=== PATIENT | female | born 1980 | race Two or more races ===

== ENCOUNTER 2024-05-21 10:19 | Emergency (ER) | payer OTHER, SELFPAY ==
[2024-05-21 10:47] VITALS: BP 143/80; PULSE 60; RESP 16; TEMP 37; O2SAT 98; BMI 30.7
--- NOTE | 2024-05-21 11:19 | XR_ITS ---
Examination: Foot, right, 3 views Technique: AP, oblique, lateral views foot, 3 views Date and time of exam: May 21, 2024 1143 hrs. Indications: Puncture injury to the foot one week ago, foot pain Findings: No acute fracture No cortical bone destruction No opaque foreign body Mild narrowing first metatarsophalangeal joint Impression: No suzy cortical bone destruction No opaque foreign body
--- NOTE | 2024-05-21 14:17 | PD.EDANKLE ---
Lower Extremity Injury RME/HPI General Chief Complaint: Ankle/Foot Injury Stated Complaint: INJURED RIGHT FOOT WHILE AT WORK Time Seen by Provider: 05/21/24 10:47 Arrival date/time: 05/21/24 10:19 This is a 44-year-old female who presents to the emergency department with complaints of a possible thorn to her plantar aspect of his right foot. 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 She reports that this incident happened approximately 1 week ago however still having pain with ambulation despite there is no visible open wound, or thorn. Denies any other injury. Mode of arrival: ambulatory Related Data Previous Rx's ?Medication ?Instructions ?Recorded ibuprofen 800 mg tablet (IBU) 800 mg PO Q8H #20 tabs 05/21/24 Allergies Allergy/AdvReac Type Severity Reaction Status Date / Time No Known Allergies Allergy Verified 05/21/24 10:21 Review of Systems Review of Systems Systems Reviewed: All systems reviewed, normal except as documented Narrative Review of Systems: Gen: No fever, no chills, no weight loss EYES: No discharge, no visual changes, no pain HEENT: No ear pain, no congestion, no sore throat PULM: No shortness of breath, no cough, no congestion CV: No chest pain, no dyspnea on exertion, no palpitations GI: No nausea, no vomiting, no diarrhea, no pain, no constipation : No frequency, no urgency,? no dysuria Musc/skel: No joint pain, no back pain Skin: No rash? Psyc: No hallucinations, no depression Heme/Lymph: No easy bleeding or bruising tendencies Neuro: No weakness, no headache ED Exam Narrative Physical exam: General: Sittiing in Exam table in no acute distress, answering questions appropriately HENT: normocephalic, atraumatic, EOMI, PERRLA, moist mucous membranes Chest: chest wall is nontender Cardiac: regular rate and rhythm, normal S1 and S2, no murmurs, rubs, or gallops, capillary refill ?2 seconds Pulmonary: clear to auscultation bilaterally, no wheezing, crackles, or rhonchi Abdominal: active bowel sounds, soft, nontender, nondistended Neuro: A&OX3, CN II-XII intact, sensation grossly intact bilaterally in UE and LE. Skin: no rashes, no ecchymosis Ext: Right foot plantar aspect there is a small puncture area however no foreign body depicted. No cellulitic pattern or abscess formation. Course Quality Measures none Orders Category Date Time Status XR foot comp RT min 3V Stat Exams 05/21/24 11:19 Completed Vital Signs Vital signs: Vital Signs Temperature 98.6 F 05/21/24 10:47 Pulse Rate 60 05/21/24 10:47 Respiratory Rate 16 05/21/24 10:47 Blood Pressure 143/80 H 05/21/24 10:47 Pulse Oximetry (%) 98 05/21/24 10:47 Oxygen Delivery Method Room Air 05/21/24 10:47 Extremity Injury, Lower Patient data External records reviewed:: [facility] previous records Clinical information provided by:: patient Social determinants that could affect healthcare access:: none Patient has the following chronic illnesses:: none How is presenting disease/condition affected by chronic disease/condition?: no chronic disease Evaluation data The following diagnostics were reviewed and interpreted by me:: radiology exam(s) Lab and/or radiology exams considered but not ordered:: none Interpretation Summary: Examination: Foot, right, 3 views Technique: AP, oblique, lateral views foot, 3 views Date and time of exam: May 21, 2024 1143 hrs. Indications: Puncture injury to the foot one week ago, foot pain Findings: No acute fracture No cortical bone destruction No opaque foreign body Mild narrowing first metatarsophalangeal joint Impression: No suzy cortical bone destruction No opaque foreign body Medications / Prescriptions Medications or Prescriptions considered but not ordered:: none Medication administrations:: none Consultations Consultation(s) initiated? (list below): No Diagnosis Extremity Injury, Lower Differential Diagnosis: puncture wound of foot Most likely diagnosis given after review of the tests above:: Puncture wound of foot Admission Indicated Admission indicated?: not indicated Admission Request Was there a request for admission?: No Disposition Plan Disposition Plan: Discharge Discharge Attestation Discharge Attestation: The patient and all family members were given an opportunity to ask questions and understood the discharge instructions. Discharge instructions specifically effects, indications for sooner follow up or return to the emergency department, and the expected course of current diagnosis. Patient condition: Stable Discharge Plan Plan Patient Disposition: HOME (Self Care) Patient condition on transfer: Stable Prescriptions/Referrals Prescriptions/Med Rec: New ibuprofen [IBU] 800 mg tablet 800 mg PO Q8H Qty: 20 0RF Referrals: No Primary/Family,Physician [Primary Care Provider] - In 1 week Problem List Clinical Impression: Puncture wound of foot Patient/Caregiver Discharge Instructions Discharge Activity: activity as tolerated Education Materials: ED Puncture Wound (Foot) Additional Instructions: There is no splinter in your foot Keep area clean and dry. Follow-up with your primary doctor. Return to the emergency department if any worsening symptoms and condition Print Language: Azeri Stand Alone Forms: Tatyana Award Info., Work/School Release, Patient Portal Info Letter PA/LADLE REPAIRER Supervising Physician PA/LADLE REPAIRER Supervising Physician: dr. Kuhn
== END 2024-05-21 14:37 | disposition home or self-care (01) ==
PROVIDERS: Emergency Provider Emergency Medicine
DX: S91.331A Puncture wound without foreign body, right foot, initial encounter (principal); W22.09XA Striking against other stationary object, initial encounter; Y93.89 Activity, other specified; Y99.0 Civilian activity done for income or pay
CPT/HCPCS: 73630; 99283

== ENCOUNTER 2024-06-26 11:55 | Emergency (ER) | payer MEDICAID, SELFPAY ==
[2024-06-26 12:15] VITALS: BP 146/79; PULSE 68; RESP 18; TEMP 36.9; O2SAT 99; BMI 30.2
--- NOTE | 2024-06-26 12:26 | EDNOTE_ITS ---
<Statement entered by Esme Gomez MD - 06/26/24 13:55> As co-signing physician, I was present and available for consult prn. I concur with the plan and care as documented by the midlevel provider. ED General RME/HPI General Chief complaint: General Adult/Misc Complain Stated complaint: SWELLING UNDER R) AXILLA X 5 DAYS Time Seen by Provider: 06/26/24 12:16 Arrival date/time: 06/26/24 11:55 44-year-old female presents to the emergency department today complaints of abscess right axilla patient reports symptoms over the last 5 days. Patient reports that initially was worse but the abscess ruptured and is improved patient reports he still has pain Limitations: no limitations Related Data Previous Rx's ?Medication ?Instructions ?Recorded ibuprofen 800 mg tablet (IBU) 800 mg PO Q8H #20 tabs 0 05/21/24 acetaminophen 500 mg capsule 1,000 mg (2 x 500 mg) PO Q8HR PRN 06/26/24 pain #30 caps clindamycin HCl 300 mg capsule 300 mg PO TID 7 days #2 1 caps 06/26/24 mupirocin 2 % topical ointment 1 applic topical TID 10 days #22 06/26/24 grams Allergies Allergy/AdvReac Type Severity Reaction Status Date / Time ibuprofen (From Motrin) Allergy Rash Verified 06/26/24 12:33 Review of Systems Review of Systems Systems Reviewed: All systems reviewed, normal except as documented Constitutional Constitutional: Reports system reviewed and no additional complaints, except as documented, Denies fever(s) and Denies headache(s) Eyes Eyes: Reports system reviewed and no additional complaints, except as documented and Denies blurry vision ENT Ears, Nose, Mouth, and Throat: Reports system reviewed and no additional complaints, except as documented, Denies headache(s), Denies nasal congestion and Denies nasal discharge Cardiovascular Cardiovascular: Reports system reviewed and no additional complaints, except as documented, Denies chest pain and Denies dyspnea Respiratory Respiratory: Reports system reviewed and no additional complaints, except as documented, Denies chest congestion, Denies cough and Denies dyspnea Gastrointestinal Gastrointestinal: Reports system reviewed and no additional complaints, except as documented and Denies abdominal pain Integumentary/Breasts Skin/Breast: Reports system reviewed and no additional complaints, except as documented, Denies rash and Reports other (Abscess right axilla) Neurologic Neurologic: Reports system reviewed and no additional complaints, except as documented, Reports as per HPI and Denies headache(s) Past Medical History Social History SMOKING STATUS: Never smoker ED Exam General Limitations: Present no limitations General appearance: Present alert and in no apparent distress Head Head exam: Present atraumatic Eye Eye exam: Present normal appearance, PERRL and EOMI ENT ENT exam: Present normal exam, normal oropharynx and mucous membranes moist Neck Neck exam: Present normal inspection, full ROM and trachea midline Chest Chest inspection: Present normal inspection and symmetric chest wall rise Respiratory Respiratory exam: Present normal lung sounds bilaterally Cardiovascular Cardiovascular exam: Present regular rate, normal rhythm and normal heart sounds Abdominal Exam Abdominal exam: Present soft and normal bowel sounds Extremities Exam Extremities exam: Present normal inspection and full ROM Back Exam Back exam: Present normal inspection and full ROM Neurological Exam Neurological exam: Present alert, oriented X3 and CN II-XII intact Psychiatric Psychiatric exam: Present normal affect and normal mood Skin Skin exam: Present warm, dry and other (Abscess right axilla) Course Quality Measures none Vital Signs Vital signs: Vital Signs Temperature 98.5 F 06/26/24 12:15 Pulse Rate 68 06/26/24 12:15 Respiratory Rate 18 06/26/24 12:15 Blood Pressure 146/79 H 06/26/24 12:15 Pulse Oximetry (%) 99 06/26/24 12:15 Oxygen Delivery Method Room Air 06/26/24 12:15 O2 saturation 99% r/a wnl MDM Patient data External records reviewed:: [facility] previous records Clinical information provided by:: patient Social determinants that could affect healthcare access:: none Patient has the following chronic illnesses:: none How is presenting disease/condition affected by chronic disease/condition?: no chronic disease Evaluation data The following diagnostics were reviewed and interpreted by me:: other (specify) (N/A) Lab and/or radiology exams considered but not ordered:: Consider not ordered Interpretation Summary: N/A Medications Medications considered but not ordered:: Given Medication administrations:: Given Consultations Consultation(s) initiated? (list below): No Diagnosis Differential Diagnosis ED Complaint MDM: Abscess, cellulitis Most likely diagnosis given after review of the tests above:: Abscess Admission Indicated Admission indicated?: not indicated Explain why admission is indicated or not indicated:: no criteria Admission Request Was there a request for admission?: No Disposition Plan Disposition Plan: Discharge Discharge Attestation Discharge Attestation: The patient and all family members were given an opportunity to ask questions and understood the discharge instructions. Discharge instructions specifically effects, indications for sooner follow up or return to the emergency department, and the expected course of current diagnosis. Patient condition: Stable Medical Decision Making MDM Narrative MDM Narrative: 44-year-old female presents to the emergency department today complaints of abscess right axilla patient reports symptoms over the last 5 days. Patient reports that initially was worse but the abscess ruptured and is improved patient reports he still has pain On exam patient well-appearing patient's not appear toxic On exam patient is abscess right axilla Symptoms appear to be mild I do not believe I&D is indicated this time Patient discharged home in no distress to follow-up with primary care doctor in the next 24 to 48 hours and for any worsening symptoms to return to the ER immediately Differential Diagnosis Differential Diagnosis: Abscess, cellulitis Medical Records Medical records reviewed: Yes I reviewed the patient's medical records. Discharge Plan Plan Patient Disposition: HOME (Self Care) Disposition Comment: Stable Prescriptions/Referrals Prescriptions/Med Rec: New clindamycin HCl 300 mg capsule 300 mg PO TID 7 Days Qty: 21 0RF acetaminophen 500 mg capsule 1,000 mg PO Q8HR PRN (Reason: pain) Qty: 30 0RF mupirocin 2 % ointment 1 applic topical TID 10 Days Qty: 22 0RF No Action ibuprofen [IBU] 800 mg tablet 800 mg PO Q8H Qty: 20 0RF Problem List Clinical Impression: Abscess of axilla, right Patient/Caregiver Discharge Instructions Education Materials: ED Abscess Antibiotic ... Additional Instructions: Please follow up with your primary care doctor in the next 24-48hrs for any worsening symptoms return here immediately Print Language: Frisian Stand Alone Forms: Tatyana Award Info., Patient Portal Info Letter PA/RADIOLOGY RN Supervising Physician PA/RADIOLOGY RN Supervising Physician: Dr. Gomez
== END 2024-06-26 12:38 | disposition home or self-care (01) ==
LOC: SERX 12:51
PROVIDERS: Emergency Provider Emergency Medicine
DX: L02.411 Cutaneous abscess of right axilla (principal)
CPT/HCPCS: 99281